=== PATIENT | female | born 1960 | race Two or more races ===

== ENCOUNTER → 2020-05-03 | Outpatient (CLI) | payer OTHER | END | disposition home or self-care (01) | LOC: LAB SALUS 04-26 16:36 | PROVIDERS: ATTEND General Practice | DX: Z13.220 Encounter for screening for lipoid disorders (principal); Z11.59 Encounter for screening for other viral diseases; Z11.4 Encounter for screening for human immunodeficiency virus [HIV]; Z72.51 High risk heterosexual behavior; Z11.3 Encounter for screening for infections with a predominantly sexual mode of transmission; Z12.11 Encounter for screening for malignant neoplasm of colon ==